=== PATIENT | male | born 1955 | race Caucasian/White ===

== ENCOUNTER → 2019-09-22 | Outpatient (CLI) | payer MEDICARE ==
[~2019-09-22] MED LIST: ALLO300T PO; ALOPURINOL PO; AMLO10TA8 PO; CARV80CP PO; LISI-170 PO; OMEG500C PO; SIMV20TA3 PO
[2019-09-22 14:04] LABS: MICROSCOPIC NOT IND
[2019-09-22 14:07] LABS: INTERNATIONAL NORMALIZED RATIO 1.01 (0.93-1.1); PROTHROMBIN TIME 10.7 Seconds (9.6-11.5)
[2019-09-22 14:10] LABS: CULTURE INDICATED? NO
[2019-09-22 14:12] LABS: BASOPHILS # (AUTO) 0.03 x10^3/uL (0-0.1); BASOPHILS % (AUTO) 1 % (0-1); EOSINOPHILS # (AUTO) 0.16 x10^3/uL (0-0.4); EOSINOPHILS % (AUTO) 3 % (1-7); LYMPHOCYTES # (AUTO) 1.22 x10^3/uL (1-3.4); LYMPHOCYTES % (AUTO) 22 % (22-44); MD NO; MEAN CORPUSCULAR HEMOGLOBIN 30.7 pg (27.5-34.5); MEAN CORPUSCULAR HGB CONC 32.5 g/dL (33.2-36.2); MEAN CORPUSCULAR VOLUME 94.4 fL (81-97); MEAN PLATELET VOLUME 7.6 fL (7.4-10.4); MONOCYTES # (AUTO) 0.63 x10^3/uL (0.2-0.8); MONOCYTES % (AUTO) 11 % (2-9); NEUTROPHILS # (AUTO) 3.55 x10^3/uL (1.8-6.8); NEUTROPHILS % (AUTO) 64 % (42-75); PLATELET COUNT 199 x10^3/uL (130-400); RED BLOOD COUNT 4.63 x10^6/uL (4.38-5.82)
[2019-09-22 14:14] LABS: ALANINE AMINOTRANSFERASE 60 U/L (12-78); ALBUMIN 3.9 g/dL (3.4-5.0); ANION GAP 7 mmol/L (5-15); CALCIUM 8.9 mg/dL (8.5-10.1); CHLORIDE 105 mmol/L (98-107)
[2019-09-22 14:16] LABS: ALKALINE PHOSPHATASE 50 U/L (45-117); BILIRUBIN,TOTAL 0.5 mg/dL (0.2-1.0); TOTAL PROTEIN 7.3 g/dL (6.4-8.2)
== END | disposition home or self-care (01) ==
LOC: STAR 12:48
PROVIDERS: ATTEND Orthopaedic Surgery Orthopaedic Surgery of the Spine
DX: Z01.818 Encounter for other preprocedural examination (principal); M48.02 Spinal stenosis, cervical region; I10 Essential (primary) hypertension
CPT/HCPCS: 36415; 71046; 80053; 81003; 85025; 85610; 85730; 93005

== ENCOUNTER 2019-10-01 05:21 | Inpatient (IN) | payer MEDICARE ==
[~2019-10-01] VITALS: Ht 188 cm; Wt 104.3 kg
[~2019-10-01 05:21] MED LIST changes: +SIMV20TA19 PO; -SIMV20TA3 PO
[2019-10-01] MEDS ORDERED: LACTATED RINGERS 1,000 ML IV SCH (06:02)
[2019-10-01 06:10] VITALS: BP 125/74
[2019-10-01] MEDS ORDERED: ACETAMINOPHEN 500 MG TABLET ONE (07:16)
[2019-10-01] MEDS ORDERED: FENTANYL PF 250 MCG/5ML ONE ×3 (07:16→10:01)
[2019-10-01] MEDS ORDERED: MIDAZOLAM 1 MG/ML, 2ML ONE (07:16)
[2019-10-01] MEDS ORDERED: LIDOCAINE-MPF 2% ,5ML ONE (07:17)
[2019-10-01] MEDS ORDERED: PROPOFOL 10 MG/ML, 20ML ONE (07:18)
[2019-10-01] MEDS ORDERED: BUPIVACAINE/PF-EPI 0.25% 1:200K ONE (07:18)
[2019-10-01] MEDS ORDERED: LIDOCAINE/PF 0.5% ,50ML ONE (07:19)
[2019-10-01] MEDS ORDERED: VANCOMYCIN 1,000 MG ONE (07:19)
[2019-10-01] MEDS ORDERED: SUCCINYLCHOLINE 20 MG/ML, 10ML ONE (07:19)
[2019-10-01] MEDS ORDERED: EPINEPHRINE 1 MG/ML, 1ML ONE (07:19)
[2019-10-01] MEDS ORDERED: ROCURONIUM 10MG/ML,5ML ONE (07:20)
[2019-10-01] MEDS ORDERED: DEXAMETHASONE 4 MG/ML, 1ML ONE ×3 (07:25)
[2019-10-01] MEDS ORDERED: PROPOFOL 50 ML ONE (07:28)
[2019-10-01] MEDS ORDERED: ACETAMINOPHEN 500 MG TABLET PO ONE (07:30)
[2019-10-01] MEDS ORDERED: GABAPENTIN 300 MG CAPSULE PO ONE (07:30)
[2019-10-01] MEDS ORDERED: EPHEDRINE 50 MG/ML, 1ML ONE (07:40)
[2019-10-01] MEDS ORDERED: ONDANSETRON 2MG/ML, 2ML ONE (07:40)
[2019-10-01] MEDS ORDERED: GLYCOPYRROLATE 0.2MG/1ML, 5ML ONE (07:40)
[2019-10-01] MEDS ORDERED: CEFAZOLIN 1,000 MG ONE ×3 (08:08)
[2019-10-01] MEDS ORDERED: DIAZEPAM 5 MG/ML, 2ML IVPush PRN (09:00)
[2019-10-01] MEDS ORDERED: ONDANSETRON 2MG/ML, 2ML IV PRN ×2 (09:00→13:00)
[2019-10-01] MEDS ORDERED: OXYcodone 5 MG/5 ML ORAL.SOL UDC PO PRN (09:00)
[2019-10-01] MEDS ORDERED: HYDROmorphone 1 MG/ML, 1ML INJ IVPush PRN (09:00)
[2019-10-01] MEDS ORDERED: ONDANSETRON ODT 8 MG PO PRN (09:00)
[2019-10-01] MEDS ORDERED: hydrALAzine 20 MG/ML, 1ML IV PRN (09:00)
[2019-10-01] MEDS ORDERED: PROMETHAZINE 12.5 MG SUPP PR PRN (09:00)
[2019-10-01] MEDS ORDERED: ALBUTEROL SULFATE 2.5 MG/3 ML NPPB PRN (09:00)
[2019-10-01] MEDS ORDERED: EPHEDRINE 50 MG/ML, 1ML IVPush PRN (09:00)
[2019-10-01] MEDS ORDERED: HALOPERIDOL 5 MG/ML IV PRN (09:00)
[2019-10-01] MEDS ORDERED: FENTANYL PF 100 MCG/2ML IV PRN (09:00)
[2019-10-01] MEDS ORDERED: MIDAZOLAM 1 MG/ML, 2ML IV PRN (09:00)
[2019-10-01] MEDS ORDERED: MEPERIDINE/PF 25MG/ML,1ML IVPush PRN (09:00)
[2019-10-01] MEDS ORDERED: LABETALOL 5MG/ML, 20ML IV PRN (09:00)
[2019-10-01] MEDS ORDERED: PROMETHAZINE 25 MG/ML, 1ML IV PRN (09:00)
[2019-10-01] MEDS ORDERED: METHOCARBAMOL 1,000 MG in DEXTROSE 5% 100 ML IV ONE (11:00)
[2019-10-01] MEDS ORDERED: FENTANYL PF 100 MCG/2ML ONE (11:56)
[2019-10-01] MEDS ORDERED: OXYcodone 5 MG/5 ML ORAL.SOL UDC ONE (11:56)
[2019-10-01 12:45] VITALS: BP 144/79
[2019-10-01] MEDS ORDERED: BISACODYL 10 MG SUPP PR PRN (13:00)
[2019-10-01] MEDS ORDERED: HYDROcodone/APAP 5/325 TABLET PO PRN (13:00)
[2019-10-01] MEDS ORDERED: MAGNESIUM HYDROXIDE 8%, 30ML UDC PO PRN (13:00)
[2019-10-01] MEDS ORDERED: PROMETHAZINE 25 MG/ML, 1ML IM PRN (13:00)
[2019-10-01] MEDS: morphine SULFATE 10 MG/ML, 1ML IV PRN ×2 (13:09→16:45)
[2019-10-01] MEDS: D5%-0.9% NACL+KCL 20MEQ 1,000 ML IV SCH ×2 (14:16→23:00)
[2019-10-01 14:30] VITALS: BP 130/76
[2019-10-01] MEDS: HYDROcodone/APAP 10/325 MG TABLET PO PRN ×3 (15:34→23:40)
[2019-10-01] MEDS: CEFAZOLIN PMX 1GM/50ML 50 ML IVPB SCH ×2 (15:45→23:37)
[2019-10-01] MEDS: CARVEDILOL 25 MG TABLET PO SCH (17:40)
[2019-10-01] MEDS: METHOCARBAMOL 750 MG in DEXTROSE 5% 100 ML IV SCH (18:36)
[2019-10-01 19:15] VITALS: BP 147/83
[2019-10-01] MEDS: SENNA/DOCUSATE TABLET PO SCH (19:49)
[2019-10-01 23:37] VITALS: BP 125/73
[2019-10-02] MEDS: METHOCARBAMOL 750 MG in DEXTROSE 5% 100 ML IV SCH ×3 (03:09→18:28)
[2019-10-02 03:54] VITALS: BP 123/75
[2019-10-02 05:22] LABS: BASOPHILS # (AUTO) 0.02 x10^3/uL (0-0.1); BASOPHILS % (AUTO) 0 % (0-1); EOSINOPHILS # (AUTO) 0.07 x10^3/uL (0-0.4); EOSINOPHILS % (AUTO) 1 % (1-7); LYMPHOCYTES # (AUTO) 1.08 x10^3/uL (1-3.4); LYMPHOCYTES % (AUTO) 8 % (22-44); MD NO; MEAN CORPUSCULAR HGB CONC 33.2 g/dL (33.2-36.2); MEAN CORPUSCULAR VOLUME 96.4 fL (81-97); MEAN PLATELET VOLUME 7.6 fL (7.4-10.4); MONOCYTES # (AUTO) 1.02 x10^3/uL (0.2-0.8); MONOCYTES % (AUTO) 8 % (2-9); NEUTROPHILS # (AUTO) 11.46 x10^3/uL (1.8-6.8); NEUTROPHILS % (AUTO) 84 % (42-75); PLATELET COUNT 220 x10^3/uL (130-400); RED BLOOD COUNT 4.34 x10^6/uL (4.38-5.82)
[2019-10-02 05:28] LABS: ANION GAP 6 mmol/L (5-15); CALCIUM 8.4 mg/dL (8.5-10.1); CHLORIDE 105 mmol/L (98-107); CREATININE 1.02 mg/dL (0.7-1.3)
[2019-10-02] MEDS: CARVEDILOL 25 MG TABLET PO SCH ×2 (05:39→20:22)
[2019-10-02 07:31] VITALS: BP 108/63
[2019-10-02] MEDS ORDERED: SIMVASTATIN 20 MG TABLET PO SCH (09:00)
[2019-10-02] MEDS: D5%-0.9% NACL+KCL 20MEQ 1,000 ML IV SCH ×2 (09:00→18:28)
[2019-10-02] MEDS: SENNA/DOCUSATE TABLET PO SCH ×2 (09:00→20:23)
[2019-10-02] MEDS: ALLOPURINOL 300 MG TABLET PO SCH (10:14)
[2019-10-02] MEDS: AMLODIPINE 10 MG TAB PO SCH (10:15)
[2019-10-02] MEDS: HYDROcodone/APAP 10/325 MG TABLET PO PRN (11:24)
[2019-10-02 12:12] VITALS: BP 102/58
[2019-10-02] MEDS: DEXAMETHASONE 4 MG/ML, 1ML IVPush SCH ×3 (13:09→22:26)
[2019-10-02] MEDS ORDERED: PHENOL THROAT SPRAY BOTTLE MM PRN (14:00)
[2019-10-02] MEDS ORDERED: KETOROLAC 30 MG/1 ML IVPush ONE (14:00)
[2019-10-02] MEDS: HYDROcodone/APAP 7.5-325MG/15ML UDC PO PRN ×2 (15:54→20:23)
[2019-10-02 18:52] VITALS: BP 122/74
[2019-10-03 02:02] VITALS: BP 130/80
[2019-10-03] MEDS: METHOCARBAMOL 750 MG in DEXTROSE 5% 100 ML IV SCH ×2 (03:04→10:48)
[2019-10-03] MEDS: D5%-0.9% NACL+KCL 20MEQ 1,000 ML IV SCH (04:10)
[2019-10-03 05:33] LABS: BASOPHILS # (AUTO) 0.02 x10^3/uL (0-0.1); BASOPHILS % (AUTO) 0 % (0-1); EOSINOPHILS % (AUTO) 0 % (1-7); LYMPHOCYTES # (AUTO) 0.54 x10^3/uL (1-3.4); LYMPHOCYTES % (AUTO) 7 % (22-44); MD NO; MEAN CORPUSCULAR HEMOGLOBIN 31.6 pg (27.5-34.5); MEAN CORPUSCULAR HGB CONC 33.5 g/dL (33.2-36.2); MEAN CORPUSCULAR VOLUME 94.5 fL (81-97); MEAN PLATELET VOLUME 7.3 fL (7.4-10.4); MONOCYTES # (AUTO) 0.11 x10^3/uL (0.2-0.8); MONOCYTES % (AUTO) 2 % (2-9); NEUTROPHILS # (AUTO) 6.99 x10^3/uL (1.8-6.8); NEUTROPHILS % (AUTO) 91 % (42-75); PLATELET COUNT 187 x10^3/uL (130-400); RED BLOOD COUNT 4.18 x10^6/uL (4.38-5.82); RED CELL DISTRIBUTION WIDTH 14.5 % (9.4-14.8)
[2019-10-03] MEDS: CARVEDILOL 25 MG TABLET PO SCH (05:35)
[2019-10-03 05:37] LABS: ANION GAP 6 mmol/L (5-15); CALCIUM 8.1 mg/dL (8.5-10.1); CHLORIDE 105 mmol/L (98-107); CREATININE 0.73 mg/dL (0.7-1.3)
[2019-10-03 06:54] VITALS: BP 119/66
[2019-10-03] MEDS: SENNA/DOCUSATE TABLET PO SCH (08:20)
[2019-10-03] MEDS: HYDROcodone/APAP 7.5-325MG/15ML UDC PO PRN (08:21)
[2019-10-03] MEDS: ALLOPURINOL 300 MG TABLET PO SCH (08:21)
[2019-10-03] MEDS: AMLODIPINE 10 MG TAB PO SCH (08:21)
[2019-10-03] MEDS ORDERED: METH750T87 PO (10:49)
[2019-10-03] MEDS ORDERED: HYDR-36 PO (10:50)
[2019-10-03] MEDS ORDERED: METHOCARBAMOL 750 MG TABLET PO SCH (19:00)
== END 2019-10-03 11:32 | disposition home or self-care (01) | DRG 472 ==
LOC: ORIP 05:21 → 4NE 12:23 → DCLOUNGE 10-03 11:24
PROVIDERS: ADMIT Orthopaedic Surgery Orthopaedic Surgery of the Spine; ATTEND Orthopaedic Surgery Orthopaedic Surgery of the Spine
PROC: 0RB30ZZ Excision of Cervical Vertebral Disc, Open Approach (ICD-10-PCS; 2019-10-01)
PROC: 4A11X4G Monitoring of Peripheral Nervous Electrical Activity, Intraoperative, External Approach (ICD-10-PCS; 2019-10-01)
PROC: 0RG20A0 Fusion of 2 or more Cervical Vertebral Joints with Interbody Fusion Device, Anterior Approach, Anterior Column, Open Approach (ICD-10-PCS; principal; 2019-10-01 07:30)
DX: M50.123 Cervical disc disorder at C6-C7 level with radiculopathy (principal); M50.023 Cervical disc disorder at C6-C7 level with myelopathy; M48.02 Spinal stenosis, cervical region; I10 Essential (primary) hypertension; E78.5 Hyperlipidemia, unspecified; M25.78 Osteophyte, vertebrae; E66.9 Obesity, unspecified; Z68.29 Body mass index [BMI] 29.0-29.9, adult; Z79.899 Other long term (current) drug therapy
CPT/HCPCS: 36415; 72040; 80048; 85025; 95938; 95941; C1713; G0378; J0171; J0690; J1100; J1885; J2001; J2250; J2405; J2704; J3010; J3370; C1762; J0330; J2270; J2800; J3480; J7120